=== PATIENT | female | born 1970 | race Caucasian/White ===

== ENCOUNTER 2018-06-15 05:11 | Day surgery (SDC) | payer OTHER ==
[2018-06-15] MEDS ORDERED: DIPRIVAN 200 MG/20 ML IV ONE (05:12)
[2018-06-15] MEDS ORDERED: Lactated Ringers 1,000 ML IV SCH (06:30)
--- NOTE | 2018-06-15 08:08 | OP ---
SURGERY DATE/TIME: 06/15/2018 0718 PREOPERATIVE DIAGNOSIS: Rectal bleeding. POSTOPERATIVE DIAGNOSIS: Normal colon. PROCEDURE: Colonoscopy. SURGEON: John Serrano M.D. ANESTHESIA: MAC by Aldo Rachel CRNA. ESTIMATED BLOOD LOSS: None. SPECIMENS: None. DESCRIPTION OF PROCEDURE: After informed written consent was obtained, the patient was taken to the endoscopy suite. She underwent monitored anesthesia and digital rectal exam showed normal sphincter tone and no external lesions. There were some minimal hemorrhoidal tissue present. The scope was inserted in the rectum and sequentially the entire colonic mucosa was traversed. The level of cecum was reached and verified with direct visualization of ileocecal valve. Upon withdrawal careful mucosal inspection revealed no gross abnormalities. Prior to withdrawal retroflexion was performed and showed no internal lesions. The scope was removed and the patient was transferred to the recovery room in good condition.
[2018-06-15 08:46] VITALS: O2SAT 99
[2018-06-15 08:49] VITALS: BP 137/91; PULSE 67
== END 2018-06-15 08:50 | disposition home or self-care (01) ==
LOC: SDC 05:11
PROVIDERS: ATTEND Family Medicine
DX: K62.5 Hemorrhage of anus and rectum (principal); E03.9 Hypothyroidism, unspecified
CPT/HCPCS: J2704

== ENCOUNTER 2024-04-21 08:19 | Day surgery (SDC) | payer OTHER ==
[~2024-04-21 08:19] MED LIST: EXPAREL 133 MG/10 ML VIAL IJ ONE; Marcaine Mpf 0.5% Vial 30 Ml ONE
[2024-04-21] MEDS ORDERED: Epinephrine Preservative Free 1 MG/ML ONE ×6 (08:29→11:30)
[2024-04-21] MEDS ORDERED: CEFAZOLIN 2 GM/100 ML NaCl 2 GM/100 ML IVPB IV ONE (08:32)
[2024-04-21] MEDS: Lactated Ringers 1,000 ML IV SCH (08:32)
[2024-04-21] MEDS ORDERED: Decadron 4 MG ONE (08:33)
[2024-04-21] MEDS ORDERED: TYLENOL EXTRA STRENGTH 500 MG ONE (08:33)
[2024-04-21] MEDS ORDERED: NEURONTIN ONE (08:33)
[2024-04-21] MEDS ORDERED: celeBREX 100 MG ONE (08:33)
[2024-04-21] MEDS: Decadron 4 MG PO ONE (08:34)
[2024-04-21] MEDS: TYLENOL EXTRA STRENGTH 500 MG PO ONE (08:34)
[2024-04-21] MEDS: CEFAZOLIN 2 GM/100 ML NaCl 2 GM/100 ML IVPB IV SCH (08:34)
[2024-04-21] MEDS: celeBREX 100 MG PO ONE (08:34)
[2024-04-21] MEDS: NEURONTIN PO ONE (08:35)
[2024-04-21] MEDS ORDERED: TORAdol 30 mg Injection ONE (08:36)
[2024-04-21] MEDS ORDERED: DEXMEDETOMIDINE 80 MCG/20ML-NS IV ONE (08:36)
[2024-04-21] MEDS ORDERED: ROCURONIUM BROMIDE IV ONE (08:36)
[2024-04-21] MEDS ORDERED: Xylocaine-Mpf 2% 5 Ml Vial ONE (08:36)
[2024-04-21] MEDS ORDERED: Zofran 4 MG/2 ML VIAL ONE (08:36)
[2024-04-21] MEDS ORDERED: BRIDION 200MG/2ML IV ONE ×2 (08:36→11:42)
[2024-04-21] MEDS ORDERED: DIPRIVAN 200 MG/20 ML IV ONE (08:36)
[2024-04-21] MEDS ORDERED: Versed 2 MG/2 ML Injection ONE (08:37)
[2024-04-21] MEDS ORDERED: SUBLIMAZE 100 MCG/2 ML ONE (08:38)
[2024-04-21 08:41] LABS: Hematocrit 35.9 % (34.1-44.9); Hemoglobin 12.1 g/dL (11.2-15.7); Mean Cell Volume 89.3 fL (79.4-94.8); Mean Corpuscular Hemoglobin 30.1 pg (25.6-32.2); Mean Corpuscular Hgb Concent. 33.7 g/dL (32.2-35.5); Mean Platelet Volume 9.6 fL (9.4-12.3); Platelet Count 239 x10^3/uL (182-369); Red Blood Count 4.02 x10^6/uL (3.93-5.22); Red Cell Distribution Width 13.2 % (11.7-14.4); White Blood Count 4.8 x10^3/uL (3.98-10.04)
[2024-04-21 08:45] VITALS: RESP 16
[2024-04-21 08:55] LABS: ALBUMIN 4.6 g/dL (3.5-5.0); ANION GAP 15.1 MEQ/L (5-15); BILIRUBIN,TOTAL 0.9 mg/dL (0.2-1.3); Calcium 9.7 mg/dL (8.4-10.2); Creatinine 1 0.63 mg/dL (0.52-1.04); EST GLOMERULAR FILTRATION RATE 105.4 ML/MIN; Potassium 4.5 mmol/L (3.5-5.1)
[2024-04-21] MEDS ORDERED: Pre-Attached Lta Kit TP ONE (09:34)
--- NOTE | 2024-04-21 09:40 | XRAY ---
Indication: Preop exam. Comparison: April 14, 2024 Portable chest again demonstrates normal heart and lungs with incidental tiny hilar calcified nodes. Bony thorax intact again with mild degenerative changes and old left 4/5 rib fractures. Impression: Continued nonacute chest with chronic features.
[2024-04-21] MEDS ORDERED: Ephedrine Sulfate 50 MG/ML ONE (10:02)
[2024-04-21] MEDS ORDERED: Lactated Ringers 1,000 ML IV ONE (10:11)
[2024-04-21] MEDS ORDERED: PHENYLEPHRINE HCL ONE (11:09)
[2024-04-21] MEDS ORDERED: BREVIBLOC 100 MG/10 ML IV ONE (12:25)
[2024-04-21 13:03] VITALS: TEMP 96.8
[2024-04-21 13:21] VITALS: BP 105/67; PULSE 80; O2SAT 95
--- NOTE | 2024-04-22 14:10 | OP ---
SURGERY DATE/TIME: 04/21/2024 [id number] PREOPERATIVE DIAGNOSIS: Torn left rotator cuff with impingement syndrome and acromioclavicular osteoarthritis. POSTOPERATIVE DIAGNOSES: 1) Torn left rotator cuff with impingement syndrome and acromioclavicular osteoarthritis. 2) Degenerative tear of the anterior labrum. PROCEDURE: Arthroscopy of the left shoulder with rotator cuff repair utilizing a 4.75 SwiveLock anchor and an inverted mattress suture of FiberTape, subacromial decompression, Lizbet procedure, and debridement of anterior labrum. SURGEON: Mike Gonzales II, ANESTHESIA: General with a block for postop pain control. DESCRIPTION OF PROCEDURE AND FINDINGS: The patient was identified and informed consent was obtained. The patient was taken to the operative suite and placed into the supine position on the operating table where the general anesthetic was administered. It should be noted that the block was placed in the preop holding area prior to the procedure. Once an appropriate level of anesthesia had been obtained, the patient was then placed into the right lateral decubitus position with the left side up and axillary roll was placed. Bony prominences were padded. The beanbag was then inflated with the shoulders rotated back about 20 degrees. The left upper extremity was then prepped and draped in the usual sterile fashion and placed into the abduction traction device. A standard time-out was taken. The shoulder was then marked for bony landmarks and a standard posterior portal was created with an 11 blade. Trocar and cannula were placed in the glenohumeral joint. At that point then, the joint was distended with the arthroscopic pump. An 18-gauge spinal needle identified the level for the anterior portal and this was created with an 11 blade. The glenohumeral joint was then inspected in a systematic fashion. Infraglenoid pouch had no loose bodies or synovial hypertrophy. The glenohumeral ligaments were noted to be intact. The posterosuperior labrums were noted to be intact. There was some degenerative fraying and tearing of the anterior labrum, and this was debrided with a shaver and contoured with a wand. Biceps tendon and its anchor were noted to be intact. Humeral head and glenoid fossa were intact with some various mild area of chondromalacia on the humeral head but this is minor in nature. Subscapularis, teres, and infraspinatus were noted to be intact and complete full-thickness tear of the supraspinatus was noted without retraction. Tear was quite small in nature, and the tear was freshened and cleaned up on the articular side. The bony bed was prepared on the articular side, and then the scope was placed into the bursal space where bursoscopy was performed. The tear was identified from the bursal side, further debrided, and the bony bed was repaired. At this point then, the undersurface of the acromion was denuded of soft tissue and about 1.5 to 2 bur thicknesses of acromion was resected anteriorly, tapering this to a smooth transition posteriorly. The distal clavicle was identified and about 2 bur thicknesses of the distal clavicle was resected from the clavicle such that the bur could easily be placed into the defect without difficulty. At this point then, attention was turned back to the rotator cuff. The tear was noted to be somewhat small in nature, was easily mobilized, and utilizing an inverted mattress suture of FiberTape and a 4.75 SwiveLock anchor, the rotator cuff was repaired back to its bony bed. The shoulder was copiously irrigated and reinspected and no further pathology identified. The instrumentation was removed, and the portal sites were closed with interrupted 4-0 nylon suture. Adaptics, 4 x 4's, and a standard postop arthroscopy dressing applied. Patient was placed into an UltraSling, transferred to the cart, and taken to the recovery room in satisfactory condition, having tolerated the procedure well.
== END 2024-04-21 13:30 | disposition home or self-care (01) ==
LOC: SDC 08:19
PROVIDERS: ATTEND Orthopaedic Surgery
DX: M75.42 Impingement syndrome of left shoulder (principal); M19.012 Primary osteoarthritis, left shoulder; M75.102 Unspecified rotator cuff tear or rupture of left shoulder, not specified as traumatic
CPT/HCPCS: 29822; 29824; 29826; 29827; 36415; 71045; 76937; 80053; 85027; C1713; J0171; J0690; J1885; J2250; J2371; J2405; J2704; J3010; A9270-GY